=== PATIENT | female | born 1955 | race Caucasian/White ===

== ENCOUNTER → 2017-10-06 | Outpatient (CLI) | payer OTHER ==
[~2017-10-06] MED LIST: ATOR20TA9 PO; IBUP-1221 PO; LORA10TA3 PO
[2017-10-06 12:20] LABS: HEMATOCRIT 49.9 % (34.6-47.8); HEMOGLOBIN 17.1 g/dL (11.7-16.4); WHITE BLOOD COUNT 7.3 x10^3/uL (3.4-10)
[2017-10-06 12:32] LABS: BLOOD UREA NITROGEN 8 mg/dL (7-18)
[2017-10-06 12:35] LABS: ASPARTATE AMINO TRANSFERASE 29 U/L (15-37)
== END | disposition home or self-care (01) ==
LOC: STAR 11:11
PROVIDERS: ATTEND Thoracic Surgery (Cardiothoracic Vascular Surgery)
DX: Z01.818 Encounter for other preprocedural examination (principal); D38.1 Neoplasm of uncertain behavior of trachea, bronchus and lung; J44.9 Chronic obstructive pulmonary disease, unspecified; E78.00 Pure hypercholesterolemia, unspecified; M19.90 Unspecified osteoarthritis, unspecified site; F17.200 Nicotine dependence, unspecified, uncomplicated
CPT/HCPCS: 36415; 80053; 85025; 93005

== ENCOUNTER 2017-10-15 06:51 | Inpatient (IN) | payer OTHER ==
[2017-10-06 11:52] VITALS: BP 121/83
[~2017-10-15] VITALS: Ht 170.2 cm; Wt 88.8 kg
[2017-10-15] MEDS ORDERED: EPINEPHRINE 1 MG/ML, 1ML ONE (06:55)
[2017-10-15] MEDS ORDERED: BUPIVACAINE/PF 0.5% ONE (06:55)
[2017-10-15] MEDS ORDERED: LACTATED RINGERS 1,000 ML IV SCH ×2 (07:35→10:29)
[2017-10-15] MEDS ORDERED: LIDOCAINE 1%, 2ML ONE (07:46)
[2017-10-15] MEDS ORDERED: MIDAZOLAM 1 MG/ML, 2ML ONE (07:53)
[2017-10-15] MEDS ORDERED: FENTANYL PF 100 MCG/2ML ONE ×2 (07:53)
[2017-10-15] MEDS ORDERED: PROPOFOL 10 MG/ML, 20ML ONE (07:54)
[2017-10-15] MEDS ORDERED: DEXAMETHASONE 4 MG/ML, 1ML ONE ×2 (07:58)
[2017-10-15] MEDS ORDERED: GLYCOPYRROLATE 0.2MG/1ML, 5ML ONE (07:58)
[2017-10-15] MEDS ORDERED: ONDANSETRON 2MG/ML, 2ML ONE (07:58)
[2017-10-15] MEDS ORDERED: NEOSTIGMINE 1 MG/ML, 10ML ONE (07:58)
[2017-10-15] MEDS ORDERED: ROCURONIUM 10 MG/ML,10ML ONE (07:59)
[2017-10-15] MEDS ORDERED: LIDOCAINE 1%, 2ML SQ PRN (08:00)
[2017-10-15] MEDS ORDERED: CEFAZOLIN 1,000 MG ONE ×2 (08:02)
[2017-10-15] MEDS ORDERED: SODIUM CHLORIDE 0.9% PF 10ML ONE (08:02)
[2017-10-15] MEDS ORDERED: FENTANYL PF 100 MCG/2ML IV PRN (09:00)
[2017-10-15] MEDS ORDERED: OXYcodone 5 MG/5 ML ORAL.SOL UDC PO PRN (09:00)
[2017-10-15] MEDS ORDERED: ACETAMINOPHEN 325 MG TABLET PO PRN ×2 (09:00→10:30)
[2017-10-15] MEDS ORDERED: ONDANSETRON 2MG/ML, 2ML IVPush PRN (09:00)
[2017-10-15] MEDS ORDERED: MEPERIDINE/PF 25MG/0.5ML IVPush PRN (09:00)
[2017-10-15] MEDS ORDERED: LABETALOL 5MG/ML, 20ML IV PRN (09:00)
[2017-10-15] MEDS ORDERED: hydrALAzine 20 MG/ML, 1ML IV PRN (09:00)
[2017-10-15] MEDS ORDERED: ALBUTEROL SULFATE 2.5 MG/3 ML NPPB PRN (09:00)
[2017-10-15] MEDS ORDERED: PROMETHAZINE 25 MG/ML, 1ML IV PRN (09:00)
[2017-10-15] MEDS ORDERED: PHENYLEPHRINE 10 MG/ML ONE (09:43)
[2017-10-15] MEDS ORDERED: ACETAMINOPHEN 650 MG SUPP PR PRN (10:30)
[2017-10-15] MEDS ORDERED: DIPHENHYDRAMINE 50 MG/ML, 1ML IVPush PRN (10:30)
[2017-10-15] MEDS ORDERED: LORazepam 2 MG/ML, 1ML IVPush PRN (10:30)
[2017-10-15] MEDS ORDERED: FAMOTIDINE 20 MG/2 ML IVPush PRN (10:30)
[2017-10-15] MEDS ORDERED: DIPHENHYDRAMINE 25 MG CAPSULE PO PRN (10:30)
[2017-10-15] MEDS ORDERED: ENALAPRILAT 1.25 MG/ML, 2ML IVPush PRN (10:30)
[2017-10-15] MEDS ORDERED: hydrALAzine 20 MG/ML, 1ML IVPush PRN (10:30)
[2017-10-15] MEDS ORDERED: morphine SULFATE 10 MG/ML, 1ML IVPush PRN (10:30)
[2017-10-15] MEDS ORDERED: ACETAMINOPHEN 650 MG/20.3 ML UDC ONE (10:51)
[2017-10-15] MEDS ORDERED: HYDROmorphone 2 MG/ML, 1ML ONE (10:52)
[2017-10-15] MEDS ORDERED: OXYcodone 5 MG/5 ML ORAL.SOL UDC ONE (10:52)
[2017-10-15] MEDS: HYDROmorphone 1 MG/ML, 1ML IV PRN ×4 (10:56→11:32)
[2017-10-15] MEDS: ONDANSETRON 2MG/ML, 2ML IVPush PRN (14:33)
[2017-10-15 16:15] VITALS: BP 107/67
[2017-10-15] MEDS: CEFAZOLIN PMX 2GM/50ML 50 ML IVPB SCH (16:44)
[2017-10-15 19:37] VITALS: BP 113/71
[2017-10-15] MEDS: HYDROcodone/APAP 5/325 TABLET PO PRN (19:59)
[2017-10-15] MEDS: FAMOTIDINE 20 MG TABLET PO SCH (20:48)
[2017-10-15] MEDS: ATORVASTATIN 20 MG TABLET PO SCH (20:48)
[2017-10-15] MEDS: LORazepam 1MG TABLET PO PRN (20:52)
[2017-10-16 00:18] VITALS: BP 95/63
[2017-10-16] MEDS: CEFAZOLIN PMX 2GM/50ML 50 ML IVPB SCH (01:00)
[2017-10-16] MEDS: HYDROcodone/APAP 5/325 TABLET PO PRN (03:25)
[2017-10-16 03:50] VITALS: BP 108/67
[2017-10-16 05:22] LABS: BLOOD UREA NITROGEN 10 mg/dL (7-18); HEMATOCRIT 41.1 % (34.6-47.8); HEMOGLOBIN 14.4 g/dL (11.7-16.4)
[2017-10-16 07:29] VITALS: BP 123/75
[2017-10-16] MEDS: FAMOTIDINE 20 MG TABLET PO SCH ×2 (09:19→21:27)
[2017-10-16] MEDS: OXYcodone/APAP 5/325MG TABLET PO PRN ×3 (09:19→18:49)
[2017-10-16] MEDS: ENOXAPARIN 40 MG/0.4 ML SQ SCH (09:19)
[2017-10-16] MEDS: ONDANSETRON 2MG/ML, 2ML IVPush PRN ×2 (12:58→18:48)
[2017-10-16 13:06] VITALS: BP 95/63
[2017-10-16 20:00] VITALS: BP 116/70
[2017-10-16] MEDS: ATORVASTATIN 20 MG TABLET PO SCH (21:27)
[2017-10-16] MEDS: LORazepam 1MG TABLET PO PRN (21:27)
[2017-10-17] MEDS: OXYcodone/APAP 5/325MG TABLET PO PRN ×2 (01:35→08:15)
[2017-10-17] MEDS: ONDANSETRON 2MG/ML, 2ML IVPush PRN ×2 (01:35→08:15)
[2017-10-17 01:54] VITALS: BP 96/58
[2017-10-17] MEDS: ENOXAPARIN 40 MG/0.4 ML SQ SCH (08:15)
[2017-10-17] MEDS: FAMOTIDINE 20 MG TABLET PO SCH (08:15)
[2017-10-17 08:22] VITALS: BP 107/59
[2017-10-17] MEDS ORDERED: OXYC-302 PO (11:13)
[2017-10-17] MEDS ORDERED: ONDA4TAB10 PO (11:14)
== END 2017-10-17 11:39 | disposition home or self-care (01) | DRG 168 ==
LOC: ORIP 06:51 → 4NOR 12:13 → DCLOUNGE 10-17 11:04
PROVIDERS: ADMIT Thoracic Surgery (Cardiothoracic Vascular Surgery); ATTEND Thoracic Surgery (Cardiothoracic Vascular Surgery)
PROC: 0BBJ4ZX Excision of Left Lower Lung Lobe, Percutaneous Endoscopic Approach, Diagnostic (ICD-10-PCS; principal; 2017-10-15 09:00)
DX: R91.8 Other nonspecific abnormal finding of lung field (principal); Z87.891 Personal history of nicotine dependence
CPT/HCPCS: 36415; 71010; 80048; 85025; 86850; 86900; 88305; 88309; C1729; J0171; J0690; J1100; J1170; J1650; J2250; J2405; J2704; J2710; J3010; J3490; J2270; J2370; J7120